=== PATIENT | female | born 1995 | race Caucasian/White ===

== ENCOUNTER 2016-12-24 08:42 | Emergency (ER) | payer MEDICAID ==
[~2016-12-24] VITALS: Ht 162.6 cm; Wt 84.0 kg
[2016-12-24 10:30] VITALS: BP 115/78
== END 2016-12-24 11:17 | disposition home or self-care (01) ==
LOC: EMS 08:44
DX: S90.111A Contusion of right great toe without damage to nail, initial encounter (principal); W21.09XA Struck by other hit or thrown ball, initial encounter; Y93.89 Activity, other specified; Y92.89 Other specified places as the place of occurrence of the external cause; Y99.2 Volunteer activity
CPT/HCPCS: 99284